=== PATIENT | male | born 1990 | race Two or more races ===

== ENCOUNTER 2017-11-24 09:10 | Inpatient (IN) | payer MEDICAID ==
[~2017-11-24] VITALS: Ht 185.4 cm; Wt 115.9 kg
[2017-11-24 09:48] LABS: Basophils # (auto) 0 uL; Eosinophils # (auto) 0 uL; Lymphocytes # (auto) 0.3 uL
[2017-11-24 09:50] LABS: Basophils % (auto) 0.3 % (0.0-2.0); Eosinophils % (auto) 0.1 % (0.0-7.0); Hemoglobin 18.2 g/dL (13.5-17.5); Lymphocytes % (auto) 2.6 % (10.0-50.0); Mean Corpuscular Hemoglobin 31.6 pg (28.0-32.0); Mean Corpuscular Volume 90.4 fL (80.0-100.0); Monocytes # (auto) 0.4 uL; Neutrophils # (auto) 10.2 uL; Platelet Count (auto) 237 10^3/uL (140-450); Red Blood Cells 5.75 10^6/uL (4.5-5.90); Red Cell Distribution Width 12.7 % (11.8-14.3)
[2017-11-24] MEDS ORDERED: SODIUM CHLORIDE 0.9% 1,000 ML IV ONE ×2 (10:00→14:00)
[2017-11-24] MEDS ORDERED: SODIUM CHLORIDE 0.9% 1,000 ML IVB ONE (10:07)
[2017-11-24 10:11] LABS: Albumin 4.2 g/dL (3.4-5.0); BUN/Creatinine Ratio 14.7; Calcium 9.1 mg/dL (8.5-10.1); Magnesium 1.9 mg/dL (1.6-2.6); Potassium 4.3 mmol/L (3.5-5.1)
[2017-11-24 10:13] LABS: Total Protein 9.3 g/dL (6.4-8.2)
[2017-11-24] MEDS ORDERED: PROMETHAZINE HCL 25 MG/ML 1ML IV PRN (10:15)
[2017-11-24] MEDS ORDERED: KETOROLAC TROMETH 30 MG/ML 1ML VIAL IV ONE (10:15)
[2017-11-24] MEDS ORDERED: CHOL20007 OR (10:18)
[2017-11-24] MEDS ORDERED: MELO1TAB56 PO (10:19)
[2017-11-24] MEDS ORDERED: GABA-339 PO (10:21)
[2017-11-24] MEDS ORDERED: BACL10TA PO ×2 (10:21→10:26)
[2017-11-24] MEDS ORDERED: OMEP20TA PO (10:23)
[2017-11-24] MEDS ORDERED: AMIT25TA9 PO (10:23)
[2017-11-24 12:09] LABS: Urine Amorphous Crystal FEW /hpf (None Seen); Urine Bacteria FEW /hpf (None Seen); Urine Blood Negative /uL (Negative); Urine Mucus MODERATE (None Seen); Urine Specific Gravity 1.035 (1.001-1.035); Urine WBC 2 /hpf (0 - 3)
[2017-11-24 12:11] LABS: Alcohol, Urine < 3.0 mg/dL (0-5); Amphetamine Screen, Urine NEGATIVE (NEGATIVE); Barbiturate Scree,Urine NEGATIVE (NEGATIVE); Benzodiazephine Screen, Urine NEGATIVE (NEGATIVE); Cannabinoid Screen, Urine NEGATIVE (NEGATIVE); Cocaine Screen, Urine NEGATIVE (NEGATIVE); Opiate Scree,Urine NEGATIVE (NEGATIVE); Phencyclidine Screen, Urine NEGATIVE (NEGATIVE)
[2017-11-24] MEDS ORDERED: MORPHINE SULFATE 4 MG/ML SYR/VIAL IV ONE (14:00)
[2017-11-24] MEDS ORDERED: ONDANSETRON HCL 4 MG/2 ML VIAL IV ONE (14:00)
[2017-11-24] MEDS ORDERED: metroNIDAZOLE 500MG/100ML 100 ML IV ONE (16:30)
[2017-11-24] MEDS ORDERED: cefTRIAXone 1GM/50ML D5W 50 ML IV ONE (16:30)
[2017-11-24] MEDS ORDERED: LEVOFLOXACIN 500MG 100 ML IV ONE (17:45)
[2017-11-24] MEDS ORDERED: NITROGLYCERIN 0.4 MG SL TAB SL PRN (17:45)
[2017-11-24] MEDS ORDERED: ACETAMINOPHEN 500 MG TAB PO PRN (17:45)
[2017-11-24] MEDS ORDERED: MORPHINE SULFATE 4 MG/ML SYR/VIAL IV PRN ×2 (17:45)
[2017-11-24] MEDS ORDERED: LORazepam 0.5 MG TAB PO PRN (17:45)
[2017-11-24] MEDS: metroNIDAZOLE 500MG/100ML 100 ML IV SCH (18:00)
[2017-11-24] MEDS: traMADol HCL 50 MG TAB PO PRN ×2 (19:01→19:56)
[2017-11-24] MEDS: SODIUM CHLORIDE 0.9% 1,000 ML IV SCH (19:01)
[2017-11-24 21:00] VITALS: BP 113/74
[2017-11-24 21:30] VITALS: BP 113/74
[2017-11-24] MEDS: AMITRIPTYLINE HCL 25 MG TAB PO SCH (21:50)
[2017-11-24] MEDS: FAMOTIDINE 20 MG TAB PO SCH (21:51)
[2017-11-24] MEDS: GABAPENTIN 300 MG CAP PO SCH (21:51)
[2017-11-24] MEDS: BACLOFEN 10 MG TAB PO SCH (21:51)
[2017-11-25] VITALS (7 sets, daily range): BP systolic 96–121; BP diastolic 50–77
[2017-11-25] MEDS: metroNIDAZOLE 500MG/100ML 100 ML IV SCH ×4 (00:15→18:22)
[2017-11-25] MEDS: SODIUM CHLORIDE 0.9% 1,000 ML IV SCH ×2 (03:35→15:36)
[2017-11-25 07:30] LABS: Basophils # (auto) 0 uL; Basophils % (auto) 0.2 % (0.0-2.0); Eosinophils # (auto) 0 uL; Eosinophils % (auto) 0.1 % (0.0-7.0); Hematocrit 43.8 % (41.0-53.0); Hemoglobin 14.8 g/dL (13.5-17.5); Lymphocytes # (auto) 1.1 uL; Lymphocytes % (auto) 17.3 % (10.0-50.0); Mean Corpuscular Hemoglobin 30.9 pg (28.0-32.0); Mean Corpuscular Hgb Conc. 33.9 g/dL (32.0-36.0); Mean Corpuscular Volume 91.1 fL (80.0-100.0); Monocytes # (auto) 0.6 uL; Monocytes % (auto) 9.7 % (0.0-12.0); Neutrophils # (auto) 4.5 uL; Neutrophils % (auto) 72.7 % (37.0-80.0); Platelet Count (auto) 190 10^3/uL (140-450); Red Blood Cells 4.81 10^6/uL (4.5-5.90); Red Cell Distribution Width 12.9 % (11.8-14.3); White Blood Cell 6.2 10^3/uL (4.4-10.8)
[2017-11-25 07:44] LABS: Albumin 3.3 g/dL (3.4-5.0); BUN/Creatinine Ratio 17.6; Calcium 7.4 mg/dL (8.5-10.1); Potassium 3.4 mmol/L (3.5-5.1)
[2017-11-25 07:47] LABS: Bilirubin, Total 2.2 mg/dL (0.2-1.0); Total Protein 7.2 g/dL (6.4-8.2)
[2017-11-25] MEDS: PANTOPRAZOLE 40 MG TAB PO SCH (09:37)
[2017-11-25] MEDS: GABAPENTIN 300 MG CAP PO SCH ×2 (09:37→21:25)
[2017-11-25] MEDS: FAMOTIDINE 20 MG TAB PO SCH ×2 (09:37→21:26)
[2017-11-25] MEDS: LEVOFLOXACIN 500MG 100 ML IV SCH (09:37)
[2017-11-25] MEDS: BACLOFEN 10 MG TAB PO SCH ×2 (09:37→21:25)
[2017-11-25] MEDS: Meloxicam 15MG TAB PO SCH (15:36)
[2017-11-25] MEDS: SOD CHL 0.45% WITH 20MEQ KCL 1,000 ML IV SCH (19:48)
[2017-11-25] MEDS: AMITRIPTYLINE HCL 25 MG TAB PO SCH (21:25)
[2017-11-25] MEDS: traMADol HCL 50 MG TAB PO PRN (21:26)
[2017-11-25] MEDS: TEMAZEPAM 15 MG CAP PO PRN (21:27)
[2017-11-26] MEDS: ONDANSETRON HCL 4 MG/2 ML VIAL IV PRN ×2 (00:33→21:38)
[2017-11-26 05:00] VITALS: BP 116/83
[2017-11-26 05:43] LABS: Calcium 8.2 mg/dL (8.5-10.1); Potassium 3.8 mmol/L (3.5-5.1)
[2017-11-26 05:45] LABS: BUN/Creatinine Ratio 15.4
[2017-11-26] MEDS: metroNIDAZOLE 500MG/100ML 100 ML IV SCH ×4 (06:14→17:46)
[2017-11-26 08:00] VITALS: BP 105/71
[2017-11-26 09:00] VITALS: BP 105/71
[2017-11-26] MEDS: FAMOTIDINE 20 MG TAB PO SCH ×2 (09:59→21:37)
[2017-11-26] MEDS: LEVOFLOXACIN 500MG 100 ML IV SCH (09:59)
[2017-11-26] MEDS: PANTOPRAZOLE 40 MG TAB PO SCH (10:00)
[2017-11-26] MEDS: GABAPENTIN 300 MG CAP PO SCH ×2 (10:00→21:33)
[2017-11-26] MEDS: BACLOFEN 10 MG TAB PO SCH ×2 (10:00→21:32)
[2017-11-26] MEDS: Meloxicam 15MG TAB PO SCH (10:01)
[2017-11-26 13:00] VITALS: BP 115/67
[2017-11-26] MEDS: SOD CHL 0.45% WITH 20MEQ KCL 1,000 ML IV SCH ×2 (13:23→21:10)
[2017-11-26 17:00] VITALS: BP 119/85
[2017-11-26] MEDS: AMITRIPTYLINE HCL 25 MG TAB PO SCH (21:31)
[2017-11-26] MEDS: TEMAZEPAM 15 MG CAP PO PRN (21:38)
[2017-11-26 22:00] VITALS: BP 124/70
[2017-11-27] MEDS: metroNIDAZOLE 500MG/100ML 100 ML IV SCH ×4 (01:18→17:42)
[2017-11-27 04:46] VITALS: BP 112/59
[2017-11-27 08:00] VITALS: BP 117/64
[2017-11-27 09:00] VITALS: BP 117/64
[2017-11-27] MEDS: LEVOFLOXACIN 500MG 100 ML IV SCH (10:21)
[2017-11-27] MEDS: PANTOPRAZOLE 40 MG TAB PO SCH (10:21)
[2017-11-27] MEDS: FAMOTIDINE 20 MG TAB PO SCH (10:22)
[2017-11-27] MEDS: Meloxicam 15MG TAB PO SCH (10:22)
[2017-11-27] MEDS: GABAPENTIN 300 MG CAP PO SCH (10:22)
[2017-11-27] MEDS: BACLOFEN 10 MG TAB PO SCH (10:22)
[2017-11-27] MEDS: SOD CHL 0.45% WITH 20MEQ KCL 1,000 ML IV SCH (10:23)
[2017-11-27 13:00] VITALS: BP 113/77
[2017-11-27 16:55] VITALS: BP 130/73
== END 2017-11-27 18:30 | disposition home or self-care (01) | DRG 248 ==
LOC: ER 09:10 → TELE 09:11 → TELE-CENTR 20:30
PROVIDERS: ADMIT Internal Medicine; ATTEND Internal Medicine Pulmonary Disease
DX: A04.9 Bacterial intestinal infection, unspecified (principal); K76.0 Fatty (change of) liver, not elsewhere classified; K81.9 Cholecystitis, unspecified; D72.829 Elevated white blood cell count, unspecified; E66.9 Obesity, unspecified; Z68.33 Body mass index [BMI] 33.0-33.9, adult; J44.9 Chronic obstructive pulmonary disease, unspecified; K21.9 Gastro-esophageal reflux disease without esophagitis; G89.4 Chronic pain syndrome; M79.7 Fibromyalgia; Z82.3 Family history of stroke; Z82.49 Family history of ischemic heart disease and other diseases of the circulatory system; S32.2XXD Fracture of coccyx, subsequent encounter for fracture with routine healing; Z88.0 Allergy status to penicillin
CPT/HCPCS: 36415; 71046; 74176; 76705; 80048; 80053; 80307; 81001; 82150; 83690; 83735; 85025; 85652; 87040; 87493; 93005; 96361; 96374; 96375; J0696; J1885; J1956; J2405; J3490

== ENCOUNTER 2022-03-20 13:36 | Emergency (ER) | payer MEDICAID ==
[~2022-03-20] VITALS: Ht 180.3 cm; Wt 125.0 kg
[~2022-03-20 13:36] MED LIST: AMIT25TA12 PO; BACL10TA PO; CHOL20007 OR; GABA-339 PO; MELO1TAB56 PO; OMEP20TA PO
[2022-03-20 14:10] LABS: Urine WBC None Seen /hpf (0 - 3)
[2022-03-20 14:26] VITALS: BP 121/78
[2022-03-20 14:49] LABS: Urine Bacteria NONE SEEN /hpf (None Seen); Urine Blood Negative /uL (Negative); Urine Mucus FEW (None Seen); Urine Specific Gravity 1.021 (1.001-1.035)
[2022-03-20 14:53] LABS: Basophils # (auto) 0 10 ^3/uL (0-0.2); Basophils % (auto) 0.7 % (0.0-2.0); Eosinophils # (auto) 0.2 10 ^3/uL (0-0.8); Eosinophils % (auto) 2.8 % (0.0-7.0); Hematocrit 46.4 % (41.0-53.0); Hemoglobin 16.5 g/dL (13.5-17.5); Lymphocytes # (auto) 2.1 10 ^3/uL (0.4-5.4); Lymphocytes % (auto) 32.2 % (10.0-50.0); Mean Corpuscular Hemoglobin 32.4 pg (28.0-32.0); Mean Corpuscular Hgb Conc. 35.4 g/dL (32.0-36.0); Mean Corpuscular Volume 91.6 fL (80.0-100.0); Monocytes # (auto) 0.3 10 ^3/uL (0-1.3); Monocytes % (auto) 5.2 % (0.0-12.0); Neutrophils # (auto) 3.9 10 ^3/uL (1.6-8.6); Neutrophils % (auto) 59.1 % (37.0-80.0); Nucleated Red Blood Cells % 0.1 %; Red Blood Cells 5.07 10^6/uL (4.5-5.90); Red Cell Distribution Width 12.6 % (11.8-14.3); White Blood Cell 6.5 10^3/uL (4.4-10.8)
[2022-03-20 15:07] LABS: Albumin 3.9 g/dL (3.4-5.0); Calcium 8.9 mg/dL (8.5-10.1); Potassium 4.5 mmol/L (3.5-5.1)
[2022-03-20 15:12] LABS: BUN/Creatinine Ratio 9.3; Bilirubin, Total 0.9 mg/dL (0.2-1.0); Total Protein 8.4 g/dL (6.4-8.2)
[2022-03-20] MEDS ORDERED: LACT10SO70 PO (16:00)
== END 2022-03-20 16:03 | disposition home or self-care (01) ==
LOC: ER 13:36
DX: K59.00 Constipation, unspecified (principal); K46.9 Unspecified abdominal hernia without obstruction or gangrene; K76.0 Fatty (change of) liver, not elsewhere classified; R91.1 Solitary pulmonary nodule; J44.9 Chronic obstructive pulmonary disease, unspecified; K21.9 Gastro-esophageal reflux disease without esophagitis; G89.29 Other chronic pain; M54.50 Low back pain, unspecified; Z79.899 Other long term (current) drug therapy; Z88.0 Allergy status to penicillin
CPT/HCPCS: 36415; 71046; 74176; 80053; 81001; 85025

== ENCOUNTER 2022-09-04 16:47 | Emergency (ER) | payer MEDICAID ==
[~2022-09-04] VITALS: Ht 180.3 cm; Wt 113.5 kg
[~2022-09-04 16:47] MED LIST changes: -AMIT25TA12 PO; +AMIT25TA20 PO; +LACT10SO70 PO; +MELO-335 PO; -MELO1TAB56 PO
[2022-09-04 17:58] LABS: Urine Bacteria NONE SEEN /hpf (None Seen); Urine Blood Negative /uL (Negative); Urine Hyaline Cast MOD /lpf (0 - 2); Urine Specific Gravity 1.012 (1.001-1.035); Urine WBC 1 /hpf (0 - 3)
[2022-09-04 18:08] LABS: Basophils # (auto) 0.1 10 ^3/uL (0-0.2); Basophils % (auto) 0.6 % (0.0-2.0); Eosinophils # (auto) 0 10 ^3/uL (0-0.8); Eosinophils % (auto) 0.2 % (0.0-7.0); Hematocrit 46.1 % (41.0-53.0); Lymphocytes # (auto) 1.9 10 ^3/uL (0.4-5.4); Lymphocytes % (auto) 13.1 % (10.0-50.0); Mean Corpuscular Hemoglobin 31.3 pg (28.0-32.0); Mean Corpuscular Hgb Conc. 34.7 g/dL (32.0-36.0); Mean Corpuscular Volume 90.1 fL (80.0-100.0); Monocytes # (auto) 0.6 10 ^3/uL (0-1.3); Monocytes % (auto) 4.4 % (0.0-12.0); Neutrophils % (auto) 81.7 % (37.0-80.0); Nucleated Red Blood Cells % 0.2 %; Red Blood Cells 5.11 10^6/uL (4.5-5.90); White Blood Cell 14.7 10^3/uL (4.4-10.8)
[2022-09-04 18:24] LABS: Albumin 4.1 g/dL (3.4-5.0); Calcium 9.4 mg/dL (8.5-10.1); Magnesium 2.2 mg/dL (1.6-2.6); Potassium 4.6 mmol/L (3.5-5.1)
[2022-09-04 18:28] LABS: Total Protein 7.8 g/dL (6.4-8.2)
[2022-09-04] MEDS ORDERED: HYDROmorphone HCL 2 MG/ML VL/or syr IM ONE (18:30)
[2022-09-04 20:05] LABS: INR 1.09 (0.9-1.15); Partial Thromboplastin Time 30.5 SEC (24.5-34.5)
[2022-09-04 20:32] VITALS: BP 121/89; PULSE 98; RESP 20; TEMP 98.1; O2SAT 96
== END 2022-09-04 20:40 | disposition home or self-care (01) ==
LOC: ER 16:47
DX: G89.4 Chronic pain syndrome (principal); M79.10 Myalgia, unspecified site; J44.9 Chronic obstructive pulmonary disease, unspecified; K21.9 Gastro-esophageal reflux disease without esophagitis; R53.1 Weakness; Z88.0 Allergy status to penicillin; Z79.01 Long term (current) use of anticoagulants
CPT/HCPCS: 36415; 80053; 81001; 82962; 83735; 84484; 85025; 85379; 85610; 85730; 93005; 96372; 99285; J1170

== ENCOUNTER 2023-10-10 17:03 | Inpatient (IN) | payer MEDICAID ==
[~2023-10-10] VITALS: Ht 180.3 cm; Wt 103.5 kg
[~2023-10-10 17:03] MED LIST changes: -MELO-335 PO; +MELO15TA29 PO
[2023-10-10 19:16] LABS: Urine Bacteria None Seen /hpf (None Seen)
[2023-10-10 19:16] LABS: Basophils # (auto) 0 10 ^3/uL (0-0.2); Basophils % (auto) 0.6 % (0.0-2.0); Eosinophils # (auto) 0.1 10 ^3/uL (0-0.8); Eosinophils % (auto) 1.7 % (0.0-7.0); Hematocrit 45.9 % (41.0-53.0); Hemoglobin 15.8 g/dL (13.5-17.5); Lymphocytes # (auto) 2.3 10 ^3/uL (0.4-5.4); Mean Corpuscular Hgb Conc. 34.4 g/dL (32.0-36.0); Mean Corpuscular Volume 93.3 fL (80.0-100.0); Monocytes # (auto) 0.4 10 ^3/uL (0-1.3); Monocytes % (auto) 5.4 % (0.0-12.0); Neutrophils # (auto) 4.4 10 ^3/uL (1.6-8.6); Neutrophils % (auto) 60.3 % (37.0-80.0); Nucleated Red Blood Cells % 0.1 %; Platelet Count (auto) 234 10^3/uL (140-450); Red Blood Cells 4.93 10^6/uL (4.5-5.90); White Blood Cell 7.2 10^3/uL (4.4-10.8)
[2023-10-10 19:25] LABS: Alanine Aminotransferase 43 U/L (7-40); Albumin 4.4 g/dL (3.2-4.8); Alkaline Phosphatase 78 U/L (46-116); Anion Gap 6 (5-15); Aspartate Aminotransferase 25 U/L (13-40); Bilirubin, Total 0.9 mg/dL (0.2-1.0); Blood Urea Nitrogen 8 mg/dL (9-23); Calcium 9.7 mg/dL (8.7-10.4); Carbon Dioxide 26 mmol/L (20-30); Chloride 107 mmol/L (98-107); Glucose 88 mg/dL (74-106); Potassium 3.8 mmol/L (3.5-5.1); Sodium 139 mmol/L (136-145); Total Protein 7.7 g/dL (5.7-8.2)
[2023-10-10 19:35] LABS: Urine Blood Negative /uL (Negative); Urine Clarity Clear (Clear); Urine Color Yellow (Yellow); Urine Protein, UAD Negative (Negative); Urine Specific Gravity 1.023 (1.001-1.035); Urine Urobilinogen Normal (Negative); Urine WBC <1 /hpf (0 - 3)
[2023-10-10 19:40] LABS: Amphetamine Screen, Urine Neg (NEGATIVE); Barbiturate Scree,Urine Neg (NEGATIVE); Benzodiazephine Screen, Urine Neg (NEGATIVE); Cocaine Screen, Urine Neg (NEGATIVE)
[2023-10-10 19:41] LABS: Cannabinoid Screen, Urine Neg (NEGATIVE); Opiate Scree,Urine Neg (NEGATIVE); Phencyclidine Screen, Urine Neg (NEGATIVE)
[2023-10-10] MEDS ORDERED: DOCUSATE SOD 100 MG CAP PO PRN (21:45)
[2023-10-10] MEDS ORDERED: MORPHINE SULFATE INJ 2 MG/ml SYRG IV PRN (21:45)
[2023-10-10] MEDS ORDERED: ONDANSETRON HCL 4 MG/2 ML VIAL IV PRN (21:45)
[2023-10-10] MEDS ORDERED: NITROGLYCERIN 0.4 MG SL TAB SL PRN (22:45)
[2023-10-11] MEDS: PANTOPRAZOLE 40 MG/10 ML VIAL INJ IV ONE (00:32)
[2023-10-11] MEDS: SODIUM CHLORIDE 0.9% 1,000 ML IV SCH (00:33)
[2023-10-11 02:33] VITALS: BP 97/60; PULSE 77; RESP 18; TEMP 97.9; O2SAT 95
[2023-10-11] MEDS ORDERED: SUCR1TAB PO (03:19)
[2023-10-11] MEDS ORDERED: VENL75CA78 PO (03:19)
[2023-10-11] MEDS ORDERED: TRAZ-228 PO (03:19)
[2023-10-11] MEDS ORDERED: PERCOT PO (03:19)
[2023-10-11] MEDS ORDERED: BUPR100T16 PO (03:19)
[2023-10-11] MEDS ORDERED: OMEP-448 PO (03:19)
[2023-10-11 05:00] VITALS: BP 109/67; PULSE 75; RESP 20; TEMP 97.6; O2SAT 100
[2023-10-11 06:39] LABS: Basophils # (auto) 0 10 ^3/uL (0-0.2); Basophils % (auto) 0.6 % (0.0-2.0); Eosinophils # (auto) 0.1 10 ^3/uL (0-0.8); Eosinophils % (auto) 1.5 % (0.0-7.0); Hematocrit 41.4 % (41.0-53.0); Hemoglobin 14.6 g/dL (13.5-17.5); Lymphocytes # (auto) 2.3 10 ^3/uL (0.4-5.4); Mean Corpuscular Hemoglobin 32.5 pg (28.0-32.0); Mean Corpuscular Hgb Conc. 35.2 g/dL (32.0-36.0); Mean Corpuscular Volume 92.1 fL (80.0-100.0); Monocytes # (auto) 0.4 10 ^3/uL (0-1.3); Monocytes % (auto) 6.3 % (0.0-12.0); Neutrophils # (auto) 3.8 10 ^3/uL (1.6-8.6); Neutrophils % (auto) 57.6 % (37.0-80.0); Nucleated Red Blood Cells % 0.1 %; Platelet Count (auto) 195 10^3/uL (140-450); White Blood Cell 6.7 10^3/uL (4.4-10.8)
[2023-10-11 06:47] LABS: Alanine Aminotransferase 36 U/L (7-40); Alkaline Phosphatase 65 U/L (46-116); Anion Gap 5 (5-15); BUN/Creatinine Ratio 8.9 (10.0-20.0); Blood Urea Nitrogen 9 mg/dL (9-23); Calcium 9.2 mg/dL (8.7-10.4); Carbon Dioxide 28 mmol/L (20-30); Chloride 107 mmol/L (98-107); Glucose 78 mg/dL (74-106); Sodium 140 mmol/L (136-145)
[2023-10-11 06:48] LABS: Albumin 4.1 g/dL (3.2-4.8); Aspartate Aminotransferase 19 U/L (13-40); Bilirubin, Total 1.1 mg/dL (0.2-1.0); Total Protein 6.9 g/dL (5.7-8.2)
[2023-10-11 07:48] LABS: Triglycerides 122 mg/dL (< 150)
[2023-10-11 07:49] LABS: LDL Cholesterol 116 mg/dL (< 100)
[2023-10-11 07:50] LABS: Cholesterol 169 mg/dL (< 200); HDL Cholesterol 39 mg/dL (40-59)
[2023-10-11 08:26] VITALS: BP 132/78; PULSE 74; RESP 15; TEMP 98; O2SAT 99
[2023-10-11] MEDS: PANTOPRAZOLE 40 MG/10 ML VIAL INJ IV SCH (09:24)
[2023-10-11] MEDS ORDERED: SEMA2INJ3 SC (09:39)
[2023-10-11 09:49] LABS: Hepatitis B Surface Antigen Negative (Negative)
[2023-10-11 10:10] LABS: Hepatitis C Antibody Negative (Negative)
[2023-10-11] MEDS: OXYCODONE W/ ACETAMINOPHEN 5/325MG TABLET PO PRN (12:09)
[2023-10-11 12:24] VITALS: BP 120/76; PULSE 96; RESP 16; TEMP 98.1; O2SAT 97
[2023-10-11] MEDS ORDERED: GABAPENTIN 300 MG CAP PO ONE (14:45)
[2023-10-11 16:42] VITALS: BP 117/70; PULSE 87; RESP 16; TEMP 98.7; O2SAT 97
[2023-10-11] MEDS ORDERED: SUCRALFATE 1 GM TAB PO SCH (17:00)
[2023-10-11 17:01] VITALS: TEMP 37.1
[2023-10-11] MEDS ORDERED: GABAPENTIN 300 MG CAP PO SCH (22:00)
[2023-10-12] MEDS ORDERED: PANTOPRAZOLE 40 MG TAB PO SCH (06:00)
== END 2023-10-11 17:30 | disposition home or self-care (01) | DRG 351 ==
LOC: ER 17:03 → OVERFLOW 22:46 → EAST 22:46
PROVIDERS: ADMIT Nurse Practitioner Family; ATTEND Nurse Practitioner Family
DX: M79.7 Fibromyalgia (principal); E11.9 Type 2 diabetes mellitus without complications; F41.9 Anxiety disorder, unspecified; J44.9 Chronic obstructive pulmonary disease, unspecified; K21.9 Gastro-esophageal reflux disease without esophagitis; G89.29 Other chronic pain; F32.9 Major depressive disorder, single episode, unspecified; E78.5 Hyperlipidemia, unspecified; E66.01 Morbid (severe) obesity due to excess calories; Z88.0 Allergy status to penicillin; Z82.3 Family history of stroke; Z56.0 Unemployment, unspecified; Z68.31 Body mass index [BMI] 31.0-31.9, adult
CPT/HCPCS: 36415; 70450; 70551; 71045; 80053; 80061; 80307; 80320; 81001; 82607; 82962; 83036; 85025; 86803; 87340; 93005; 93306; 93886; 97163; G0378; J2470

== ENCOUNTER 2024-03-04 13:48 | Emergency (ER) | payer MEDICAID ==
[~2024-03-04] VITALS: Ht 180.3 cm; Wt 100.3 kg
[~2024-03-04 13:48] MED LIST changes: -AMIT25TA20 PO; -BACL10TA PO; +BUPR100T16 PO; -CHOL20007 OR; -MELO15TA29 PO; +OMEP-448 PO; -OMEP20TA PO; +PERCOT PO; +SEMA2INJ3 SC; +SUCR1TAB PO; +TRAZ-228 PO; +VENL75CA78 PO
--- NOTE | 2024-03-04 14:20 | ED.PDOC ---
GI ASSESSMENT HPI Comments 33y M who presents to the ED for chief complaint of GI bleeding.Pt states while using the restroom last night PM, he had blood streaked bowels and noticed blood in toilet bowl. Pt states he started to have L sided abdominal pain, constant, sharp in nature, with no associated exacerbating or relieving factors. Pt otherwise denies any associated nausea, vomiting, fever, cough, or chills. Pt denies any past GI history but states PCP is doing ongoing tests to look for any associated GI issues. Pt otherwise has noted stable vitals in the ED. Pt denies any other symptoms at this time. Time Seen by MD: 14:30 Primary Care Provider: FOX Reviewed Notes: Nurses Notes Allergies: Coded Allergies: Penicillins (Verified Allergy, Unknown, 11/24/17) Home Meds Active Scripts Dicyclomine Hcl (BENTYL CAPSULE) 10 Mg Cp, 1 CAP PO TID PRN for 20 Days, #60 CAP 11 Refills Prov:EDEL GARCIA MD 03/04/24 Famotidine (PEPCID TABLET) 20 Mg Tb, 1 TAB PO BID PRN for 15 Days, #30 TAB 5 Refills Prov:EDEL GARCIA MD 03/04/24 Lactulose (Lactulose) 10 Gm/15 Ml Ghazala, 30 ML PO BID, #300 ML Prov:MOUSTAPHA MEADOWS 03/20/22 Reported Medications Semaglutide (Ozempic) 2 Mg/3 Ml Inj, 1 MG SC QWEEKLY, INJ 10/11/23 Oxycodone W/ Acetaminophen (Percocet 5/325MG) 1 Tab Tb, 1 TAB PO TIDPRN, #90 TAB 10/11/23 Omeprazole (Omeprazole Dr) 40 Mg Cap, 1 TAB PO HS 10/11/23 Bupropion Hcl (Bupropion Hcl Er) 100 Mg Tab, 1 TAB PO QAM 10/11/23 Venlafaxine Hcl (Venlafaxine Hcl Er) 75 Mg Cap, 1 CAP PO DAILY 10/11/23 Sucralfate (Sucralfate) 1 Gm Tab, 1 TAB PO BID 10/11/23 Trazodone Hcl (Trazodone Hcl) 100 Mg Tab, 2 TAB PO HS 10/11/23 Gabapentin (Gabapentin) 600 Mg Tab, 600 MG PO TID, MG 11/24/17 Information Source: Patient Mode of Arrival: Ambulatory Brought in by: self Past Medical History PAST MEDICAL HISTORY: Anxiety, COPD, Depression, GERD Surgical History: Denies all surgeries Family History Family History: Reviewed,noncontributory to illness Social History Smoker: Non-Smoker Alcohol: Occasionally Drugs: Marijuana Lives In: Home Constitutional: denies: chills, diaphoresis, fatigue, fever, malaise, sweats, weakness, others EENTM: denies: blurred vision, double vision, ear bleeding, ear discharge, ear drainage, ear pain, ear ringing, eye pain, eye redness, hearing loss, mouth pain, mouth swelling, nasal discharge, nose bleeding, nose congestion, nose pain, photophobia, tearing, throat pain, throat swelling, voice changes, others Respiratory: denies: cough, hemoptysis, orthopnea, SOB at rest, shortness of breath, SOB with excertion, stridor, wheezing, others Cardiovascular: denies: chest pain, dizzy spells, diaphoresis, Dyspnea on exertion, edema, irregular heart beat, left arm pain, lightheadedness, palpitations, PND, syncope, others Gastrointestinal: reports: abdominal pain, blood streaked bowels; denies: abdomen distended, constipated, diarrhea, dysphagia, difficulty swallowing, hematemesis, melena, nausea, poor appetite, poor fluid intake, rectal bleeding, rectal pain, vomiting, others Genitourinary: denies: burning, dysuria, flank pain, frequency, hematuria, incontinence, penile discharge, penile sore, pain, testicle pain, testicle swelling, urgency, others Neurological: denies: dizziness, fainting, headache, left sided numbness, left sided weakness, numbness, paresthesia, pre-existing deficit, right sided numbness, right sided weakness, seizure, speech problems, tingling, tremors, weakness, others Musculoskeletal: denies: back pain, gout, joint pain, joint swelling, muscle pain, muscle stiffness, neck pain, others Integumetry: denies: bruises, change in color, change in hair/nails, dryness, laceration, lesions, lumps, rash, wounds, others Allergic/Immunocompromised: denies: Difficulty Healing, Frequent Infections, Hives, Itching, others Hematologic/Lymphatic: denies: anemia, blood clots, easy bleeding, easy bruising, swollen glands, others Endocrine: denies: excessive hunger, excessive sweating, excessive thirst, excessive urination, flushing, intolerance to cold, intolerance to heat, unexplained weight gain, unexplained weight loss, others Psychiatric: denies: anxiety, bipolar disorder, depression, hopeless, panic disorder, schizophrenia, sleepless, suicidal, others All Other Systems: Reviewed and Negative Physical Exam General Appearance: Mild Distress, Normal HEENT: Normal ENT Inspection, Pharynx Normal, TMs Normal Neck: Full Range of Motion, Non-Tender, Normal, Normal Inspection Respiratory: Chest Non-Tender, Lungs Clear, No Accessory Muscle Use, No Respiratory Distress, Normal Breath Sounds Cardiovascular: No Edema, No JVD, No Murmur, No Gallop, Normal Peripheral Pulses, Regular Rate/Rhythm Breast Exam: Deferred Gastrointestinal: Non Tender, Soft Genitalia: Deferred Pelvic: Deferred Rectal: Deferred Extremities: No calf tenderness, Normal capillary refill, Normal inspection, Normal range of motion, Non-tender, No pedal edema Musculoskeletal : Apperance: Normal Neurologic: Alert, 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 Was a procedure done?: No GI differential Dx Differential Diagnosis: Diverticular disease, Gastritis/PUD, Gastroenteritis, GI hemorrhage, Inflammatory BD, Food Poisoning, Stress Ulcer X-Ray, Labs, Meds, VS Vital Signs Date Time Temp Pulse Resp B/P (MAP) Pulse Ox O2 Delivery O2 Flow Rate FiO2 03/04/24 16:52 98.6 79 18 130/74 (92) 98 98.6 03/04/24 16:52 79 18 98 Room Air 0 03/04/24 15:12 78 15 125/74 03/04/24 14:42 84 16 120/77 03/04/24 14:19 97.6 84 16 119/78 (92) 98 Lab Test 03/04/24 14:26 Range/Units White Blood Count 7.3 4.4-10.8 10^3/uL Red Blood Count 5.06 4.5-5.90 10^6/uL Hemoglobin 16.4 13.5-17.5 g/dL Hematocrit 46.5 41.0-53.0 % Mean Corpuscular Volume 91.9 80.0-100.0 fL Mean Corpuscular Hemoglobin 32.5 H 28.0-32.0 pg Mean Corpuscular Hemoglobin Concent 35.3 32.0-36.0 g/dL Red Cell Distribution Width 12.7 11.8-14.3 % Platelet Count 250 140-450 10^3/uL Mean Platelet Volume 8.1 6.9-10.8 fL Neutrophils (%) (Auto) 61.1 37.0-80.0 % Lymphocytes (%) (Auto) 30.1 10.0-50.0 % Monocytes (%) (Auto) 6.0 0.0-12.0 % Eosinophils (%) (Auto) 2.0 0.0-7.0 % Basophils (%) (Auto) 0.8 0.0-2.0 % Neutrophils # (Auto) 4.5 1.6-8.6 10 ^3/uL Lymphocytes # (Auto) 2.2 0.4-5.4 10 ^3/uL Monocytes # (Auto) 0.4 0-1.3 10 ^3/uL Eosinophils # (Auto) 0.1 0-0.8 10 ^3/uL Basophils # (Auto) 0.1 0-0.2 10 ^3/uL Nucleated Red Blood Cells 0.1 % Prothrombin Time 10.5 9.3-11.8 sec Prothrombin Time INR 0.99 0.9-1.15 Activated Partial Thromboplast Time 28.6 24.5-34.5 SEC Sodium Level 140 136-145 mmol/L Potassium Level 3.9 3.5-5.1 mmol/L Chloride Level 106 98-107 mmol/L Carbon Dioxide Level 29 20-31 mmol/L Anion Gap 5 5-15 Blood Urea Nitrogen 7 L 9-23 mg/dL Creatinine 1.16 0.700-1.30 mg/dL Glomerular Filtration Rate Calc 86 >90 mL/min BUN/Creatinine Ratio 6.0 L 10.0-20.0 Serum Glucose 79 74-106 mg/dL Calcium Level 9.8 8.7-10.4 mg/dL Total Bilirubin 0.8 0.2-1.0 mg/dL Aspartate Amino Transferase (AST) 22 13-40 U/L Alanine Aminotransferase (ALT) 25 7-40 U/L Alkaline Phosphatase 90 46-116 U/L Total Protein 7.8 5.7-8.2 g/dL Albumin 4.8 3.2-4.8 g/dL Current Medications Medications (Trade) Dose Ordered Sig/Victoriano Route Start Time Stop Time Status Last Admin Ondansetron HCl (Zofran) 4 mg ONCE ONCE IV 03/04/24 14:15 03/04/24 14:16 DC 03/04/24 14:42 Sodium Chloride 1,000 ml @ 1,000 mls/hr Q1H ONCE IVB 03/04/24 14:15 03/04/24 15:14 DC 03/04/24 14:35 Morphine Sulfate 4 mg ONCE ONCE IV 03/04/24 14:15 03/04/24 14:16 DC 03/04/24 14:42 [place] [id number] Ph: [phone] DIAGNOSTIC IMAGING Diagnostic Imaging Report : [id number] Signed PATIENT: EDI LANDIN ACCT: [id number] UNIT: [id number] : 1990 LOC: ER ROOM / BED: / AGE / SEX: 33 / M ADM STATUS: REG ER SERVICE 1406 ORDERING PHYSICIAN: EDEL GARCIA MD PROCEDURE(s): ABPLIV - CT AB PEL WITH IV CON ONLY REASON: LLQ pain ORDER NUMBER(s): [id number], ACCESSION NUMBER(s): [id number] EXAM: CT Abdomen and Pelvis With Intravenous Contrast CLINICAL INDICATION: LLQ pain TECHNIQUE: Axial computed tomography images of the abdomen and pelvis with intravenous contrast. This CT exam was performed using one or more of the following dose reduction techniques: automated exposure control, adjustment of the mA and/or kV according to patient size, and/or use of iterative reconstruction technique. COMPARISON: None FINDINGS: LUNG BASES: Unremarkable. No mass. No consolidation. MEDIASTINUM: Small esophageal hiatal hernia. ABDOMEN: LIVER: Hepatomegaly with fatty infiltration. GALLBLADDER AND BILE DUCTS: Unremarkable. No calcified stones. No ductal dilation. PANCREAS: Unremarkable. No mass. No ductal dilation. SPLEEN: Mild splenomegaly. ADRENALS: Unremarkable. No mass. KIDNEYS AND URETERS: Unremarkable. No stones within either kidney. No hydronephrosis. STOMACH AND BOWEL: Colonic diverticulosis without acute diverticulitis. No obstruction. PELVIS: APPENDIX: No findings to suggest acute appendicitis. BLADDER: Unremarkable. No mass. REPRODUCTIVE: Unremarkable as visualized. ABDOMEN and PELVIS: INTRAPERITONEAL SPACE: Unremarkable. No free air. No significant fluid collection. BONES/JOINTS: No acute fracture. No dislocation. SOFT TISSUES: Bilateral inguinal hernias. VASCULATURE: Unremarkable. No abdominal aortic aneurysm. LYMPH NODES: Unremarkable. No enlarged lymph nodes. OTHER FINDINGS: . . IMPRESSION: 1. Small esophageal hiatal hernia. 2. Hepatomegaly with fatty infiltration. 3. No obstructive uropathy. 4. Bilateral inguinal hernias. 5. Colonic diverticulosis without acute diverticulitis. ATED BY: OSWALDO MARTINEZ MD DICTATED DATE/TIME: 03/04/241549 SIGNED BY: OSWALDO MARTINEZ MD SIGNED DATE/TIME: 03/04/241549 CC: Time of 1ST Reevaluation: 15:00 Reevaluation 1ST: Unchanged Time of 2ND Reevaluation: 16:00 Reevaluation 2ND: Improved Patient Education/Counseling: Diagnosis, Treatment Family Education/Counseling: No Family Present Departure 1 Departure Time of Disposition: 16:00 Impression: Primary Impression: Rectal bleeding Disposition: HOME / SELF CARE / HOMELESS Condition: Stable e-Prescriptions Dicyclomine Hcl (BENTYL CAPSULE) 10 Mg Cp 1 CAP PO TID PRN for 20 Days, #60 CAP 11 Refills Prov: EDEL GARCIA MD 03/04/24 Famotidine (PEPCID TABLET) 20 Mg Tb 1 TAB PO BID PRN for 15 Days, #30 TAB 5 Refills Prov: EDEL GARCIA MD 03/04/24 Critical Care Note Critical Care Time?: No Stability Stability form required: No Heart Score Heart Score: Heart Score Response (Comments) Value History N/A 0 EKG N/A 0 Age N/A 0 Risk Factors N/A 0 Troponin N/A 0 Total 0 I personally scribed for EDEL GARCIA MD (BJ) on 03/04/24 at 14:20. Electronically submitted by Marsha Diaz ([email or web address]). I personally scribed for EDEL GARCIA MD (BJ) on 03/04/24 at 14:31. Electronically submitted by Marsha Diaz ([email or web address]). I personally scribed for EDEL GARCIA MD (BJ) on 03/04/24 at 16:08. Electronically submitted by Marsha Diaz ([email or web address]). EDEL GARCIA MD Mar 04, 2024 14:20
[2024-03-04] MEDS: SODIUM CHLORIDE 0.9% 1,000 ML IVB ONE (14:35)
[2024-03-04 14:38] LABS: Basophils # (auto) 0.1 10 ^3/uL (0-0.2); Basophils % (auto) 0.8 % (0.0-2.0); Eosinophils # (auto) 0.1 10 ^3/uL (0-0.8); Hematocrit 46.5 % (41.0-53.0); Hemoglobin 16.4 g/dL (13.5-17.5); Lymphocytes # (auto) 2.2 10 ^3/uL (0.4-5.4); Lymphocytes % (auto) 30.1 % (10.0-50.0); Mean Corpuscular Hemoglobin 32.5 pg (28.0-32.0); Mean Corpuscular Hgb Conc. 35.3 g/dL (32.0-36.0); Mean Corpuscular Volume 91.9 fL (80.0-100.0); Monocytes # (auto) 0.4 10 ^3/uL (0-1.3); Neutrophils # (auto) 4.5 10 ^3/uL (1.6-8.6); Neutrophils % (auto) 61.1 % (37.0-80.0); Nucleated Red Blood Cells % 0.1 %; Platelet Count (auto) 250 10^3/uL (140-450); Red Blood Cells 5.06 10^6/uL (4.5-5.90); Red Cell Distribution Width 12.7 % (11.8-14.3); White Blood Cell 7.3 10^3/uL (4.4-10.8)
[2024-03-04] MEDS: MORPHINE SULFATE 4 MG/ML SYR/VIAL IV ONE (14:42)
[2024-03-04] MEDS: ONDANSETRON HCL 4 MG/2 ML VIAL IV ONE (14:42)
[2024-03-04 14:54] LABS: Alanine Aminotransferase 25 U/L (7-40); Alkaline Phosphatase 90 U/L (46-116); Anion Gap 5 (5-15); Aspartate Aminotransferase 22 U/L (13-40); Bilirubin, Total 0.8 mg/dL (0.2-1.0); Calcium 9.8 mg/dL (8.7-10.4); Carbon Dioxide 29 mmol/L (20-31); Chloride 106 mmol/L (98-107); Glucose 79 mg/dL (74-106); Potassium 3.9 mmol/L (3.5-5.1); Sodium 140 mmol/L (136-145); Total Protein 7.8 g/dL (5.7-8.2)
[2024-03-04 15:09] LABS: Albumin 4.8 g/dL (3.2-4.8); Blood Urea Nitrogen 7 mg/dL (9-23)
[2024-03-04 15:12] LABS: INR 0.99 (0.9-1.15); Partial Thromboplastin Time 28.6 SEC (24.5-34.5); Prothrombin Time 10.5 sec (9.3-11.8)
[2024-03-04] MEDS: IOHEXOL 300 MG/ML 100ML BOTTLE IJ ONE (15:51)
--- NOTE | 2024-03-04 15:52 | DVH ---
EXAM: CT Abdomen and Pelvis With Intravenous Contrast CLINICAL INDICATION: LLQ pain TECHNIQUE: Axial computed tomography images of the abdomen and pelvis with intravenous contrast. Th is CT exam was performed using one or more of the following dose reduction techniques: automated exp osure control, adjustment of the mA and/or kV according to patient size, and/or use of iterative tavares nstruction technique. COMPARISON: None FINDINGS: LUNG BASES: Unremarkable. No mass. No consolidation. MEDIASTINUM: Small esophageal hiatal hernia. ABDOMEN: LIVER: Hepatomegaly with fatty infiltration. GALLBLADDER AND BILE DUCTS: Unremarkable. No calcified stones. No ductal dilation. PANCREAS: Unremarkable. No mass. No ductal dilation. SPLEEN: Mild splenomegaly. ADRENALS: Unremarkable. No mass. KIDNEYS AND URETERS: Unremarkable. No stones within either kidney. No hydronephrosis. STOMACH AND BOWEL: Colonic diverticulosis without acute diverticulitis. No obstruction. PELVIS: APPENDIX: No findings to suggest acute appendicitis. BLADDER: Unremarkable. No mass. REPRODUCTIVE: Unremarkable as visualized. ABDOMEN and PELVIS: INTRAPERITONEAL SPACE: Unremarkable. No free air. No significant fluid collection. BONES/JOINTS: No acute fracture. No dislocation. SOFT TISSUES: Bilateral inguinal hernias. VASCULATURE: Unremarkable. No abdominal aortic aneurysm. LYMPH NODES: Unremarkable. No enlarged lymph nodes. OTHER FINDINGS: . . IMPRESSION: 1. Small esophageal hiatal hernia. 2. Hepatomegaly with fatty infiltration. 3. No obstructive uropathy. 4. Bilateral inguinal hernias. 5. Colonic diverticulosis without acute diverticulitis.
[2024-03-04] MEDS ORDERED: FAMO20TA10 PO (16:31)
[2024-03-04] MEDS ORDERED: DICY10CA PO (16:31)
[2024-03-04 16:52] VITALS: BP 130/74; PULSE 79; RESP 18; TEMP 98.6; O2SAT 98
== END 2024-03-04 17:08 | disposition home or self-care (01) ==
LOC: ER 13:48
DX: K62.5 Hemorrhage of anus and rectum (principal); J44.9 Chronic obstructive pulmonary disease, unspecified; K21.9 Gastro-esophageal reflux disease without esophagitis; F12.90 Cannabis use, unspecified, uncomplicated; Z88.0 Allergy status to penicillin; Z79.899 Other long term (current) drug therapy
CPT/HCPCS: 36415; 74177; 80053; 85025; 85610; 85730; 96361; 96374; 96375; 99285; J2270; J2405; J7030; Q9967

== ENCOUNTER 2024-07-23 21:00 | Emergency (ER) | payer MEDICAID ==
[~2024-07-23] VITALS: Ht 180.3 cm; Wt 105.1 kg
[~2024-07-23 21:00] MED LIST changes: +DICY10CA PO; +FAMO20TA10 PO
[2024-07-23 22:06] LABS: Urine Bacteria FEW /hpf (None Seen); Urine Blood Negative /uL (Negative); Urine Clarity Clear (Clear); Urine Color Light-Yellow (Yellow); Urine Protein, UAD Negative (Negative); Urine Specific Gravity 1.025 (1.001-1.035); Urine Squamous Epithelial Cell None Seen /hpf (<5); Urine Urobilinogen Normal (Negative); Urine WBC 1 /HPF (0-3)
[2024-07-23] MEDS ORDERED: DOXY100C4 PO (22:42)
--- NOTE | 2024-07-23 22:43 | ED.PDOC ---
General HPI Comments C/C of penile shaft discomfort x2 weeks. Pt admits to dysuria and hesitancy. Denies hematuria. Pt states he was circumcised two months ago. No erythema, edema or swelling noted. VSS. Chief Complaint: Penile Problem Time Seen by MD: 21:05 Primary Care Provider: FOX Allergies: Coded Allergies: Amoxicillin (Verified Allergy, Severe, 07/23/24) Penicillins (Verified Allergy, Unknown, 11/24/17) Home Meds Active Scripts Dicyclomine Hcl (BENTYL CAPSULE) 10 Mg Cp, 1 CAP PO TID PRN for 20 Days, #60 CAP 11 Refills Prov:EDEL GARCIA MD 03/04/24 Famotidine (PEPCID TABLET) 20 Mg Tb, 1 TAB PO BID PRN for 15 Days, #30 TAB 5 Refills Prov:EDEL GARCIA MD 03/04/24 Lactulose (Lactulose) 10 Gm/15 Ml Ghazala, 30 ML PO BID, #300 ML Prov:MOUSTAPHA MEAODWS 03/20/22 Reported Medications Semaglutide (Ozempic) 2 Mg/3 Ml Inj, 1 MG SC QWEEKLY, INJ 10/11/23 Oxycodone W/ Acetaminophen (Percocet 5/325MG) 1 Tab Tb, 1 TAB PO TIDPRN, #90 TAB 10/11/23 Omeprazole (Omeprazole Dr) 40 Mg Cap, 1 TAB PO HS 10/11/23 Bupropion Hcl (Bupropion Hcl Er) 100 Mg Tab, 1 TAB PO QAM 10/11/23 Venlafaxine Hcl (Venlafaxine Hcl Er) 75 Mg Cap, 1 CAP PO DAILY 10/11/23 Sucralfate (Sucralfate) 1 Gm Tab, 1 TAB PO BID 10/11/23 Trazodone Hcl (Trazodone Hcl) 100 Mg Tab, 2 TAB PO HS 10/11/23 Gabapentin (Gabapentin) 600 Mg Tab, 600 MG PO TID, MG 11/24/17 Mode of Arrival: Ambulatory Past Medical History PAST MEDICAL HISTORY: Anxiety, COPD, Depression, GERD Surgical History: Denies all surgeries Family History Family History: Reviewed,noncontributory to illness Social History Smoker: Non-Smoker Alcohol: Occasionally Drugs: Marijuana Lives In: Home Constitutional: denies: chills, diaphoresis, fatigue, fever, malaise, sweats, weakness, others EENTM: denies: blurred vision, double vision, ear bleeding, ear discharge, ear drainage, ear pain, ear ringing, eye pain, eye redness, hearing loss, mouth pain, mouth swelling, nasal discharge, nose bleeding, nose congestion, nose pain, photophobia, tearing, throat pain, throat swelling, voice changes, others Respiratory: denies: cough, hemoptysis, orthopnea, SOB at rest, shortness of breath, SOB with excertion, stridor, wheezing, others Cardiovascular: denies: chest pain, dizzy spells, diaphoresis, Dyspnea on exertion, edema, irregular heart beat, left arm pain, lightheadedness, palpitations, PND, syncope, others Gastrointestinal: denies: abdomen distended, abdominal pain, blood streaked bowels, constipated, diarrhea, dysphagia, difficulty swallowing, hematemesis, m trisha, nausea, poor appetite, poor fluid intake, rectal bleeding, rectal pain, vomiting, others Genitourinary: reports: burning; denies: dysuria, flank pain, frequency, hematuria, incontinence, penile discharge, penile sore, pain, testicle pain, testicle swelling, urgency, others Neurological: denies: dizziness, fainting, headache, left sided numbness, left sided weakness, numbness, paresthesia, pre-existing deficit, right sided numbness, right sided weakness, seizure, speech problems, tingling, tremors, weakness, others Musculoskeletal: denies: back pain, gout, joint pain, joint swelling, muscle pain, muscle stiffness, neck pain, others Integumetry: denies: bruises, change in color, change in hair/nails, dryness, laceration, lesions, lumps, rash, wounds, others Allergic/Immunocompromised: denies: Difficulty Healing, Frequent Infections, Hives, Itching, others Hematologic/Lymphatic: denies: anemia, blood clots, easy bleeding, easy bruising, swollen glands, others Endocrine: denies: excessive hunger, excessive sweating, excessive thirst, excessive urination, flushing, intolerance to cold, intolerance to heat, unexplained weight gain, unexplained weight loss, others Psychiatric: denies: anxiety, bipolar disorder, depression, hopeless, panic disorder, schizophrenia, sleepless, suicidal, others Physical Exam General Appearance: No Apparent Distress, Normal HEENT: Pharynx Normal Neck: Full Range of Motion, Non-Tender Respiratory: Lungs Clear, No Respiratory Distress, Normal Breath Sounds Cardiovascular: No Murmur, Normal Peripheral Pulses, Regular Rate/Rhythm Breast Exam: Deferred Gastrointestinal: No Organomegaly, Non Tender, No Pulsatile Mass, Normal Bowel Sounds, Soft Genitalia: Normal Pelvic: Deferred Rectal: Deferred Extremities: Normal inspection, Normal range of motion Musculoskeletal : Apperance: Normal Neurologic: Alert, No Motor Deficits, Normal Affect, Normal Mood, No Sensory Deficits Cerebellar Function: Normal Reflexes: Normal Skin: Dry, Normal Color, Warm Lymphatic: No Adenopathy Was a procedure done? Was a procedure done?: No Differential Diagnosis Kidney stone (Female): N/A Kidney stone (Male): Pyelonephritis, Urolithiasis, Urinary tract infection X-Ray, Labs, Meds, VS Vital Signs Date Time Temp Pulse Resp B/P (MAP) Pulse Ox O2 Delivery O2 Flow Rate FiO2 07/23/24 21:00 98.8 95 16 138/83 (101) 97 98.8 Lab Test 07/23/24 21:40 Range/Units Urine Color Light-yellow Yellow Urine Clarity Clear Clear Urine pH 6.0 5.0-9.0 Urine Specific [place] 1.025 1.001-1.035 Urine Protein Negative Negative Urine Ketones Negative Negative Urine Blood Negative Negative /uL Urine Nitrite Negative Negative Urine Bilirubin Negative Negative Urine Urobilinogen Normal Negative mg/dL Urine Leukocyte Esterase Negative Negative /uL Urine RBC 1 0 - 3 /hpf Urine Microscopic WBC 1 0-3 /HPF Urine Squamous Epithelial Cells None seen <5 /hpf Urine Bacteria Few H None Seen /hpf Urine Glucose Normal Normal mg/dL X-Ray, Labs, Meds, VS Comment UA POSITIVE BACTERIA WBCS WE WILL TREAT FOR URETHRITIS. TRIAL DOXYCYCLINE TWICE DAILY X7 DAYS. ADVISED TO FOLLOW UP WITH HIS PRIMARY IN 2-3 DAYS NECESSARY ADVISED ON ER RETURN PRECAUTIONS PATIENT INDICATES UNDERSTANDING AGREES WITH DISCHARGE PLAN OF CARE. Time of 1ST Reevaluation: 21:05 Reevaluation 1ST: Unchanged Time of 2ND Reevaluation: 22:41 Reevaluation 2ND: Unchanged Patient Education/Counseling: Diagnosis, Treatment, Prognosis, Need For Follow Up Family Education/Counseling: No Family Present Departure 1 Departure Time of Disposition: 22:41 Impression: Primary Impression: Urethritis Disposition: HOME / SELF CARE / HOMELESS Condition: Stable e-Prescriptions Doxycycline Hyclate (Doxycycline Hyclate) 100 Mg Cap 100 MG PO BID for 7 Days, #14 CAP Prov: PREETI EASLEY 07/23/24 Discharged With: Self Critical Care Note Critical Care Time?: No Stability Stability form required: No PREETI EASLEY Jul 23, 2024 22:43
[2024-07-23 23:15] VITALS: BP 132/80; PULSE 92; RESP 18; TEMP 98.5; O2SAT 97
== END 2024-07-23 23:29 | disposition home or self-care (01) ==
LOC: ER 21:00
DX: N34.2 Other urethritis (principal); F10.90 Alcohol use, unspecified, uncomplicated; F12.90 Cannabis use, unspecified, uncomplicated; F41.9 Anxiety disorder, unspecified; F32.A Depression, unspecified; J44.9 Chronic obstructive pulmonary disease, unspecified; K21.9 Gastro-esophageal reflux disease without esophagitis; Z79.899 Other long term (current) drug therapy; Z88.0 Allergy status to penicillin; Y90.9 Presence of alcohol in blood, level not specified
CPT/HCPCS: 81001